=== PATIENT | male | born 1950 | race Caucasian/White ===

== ENCOUNTER → 2018-11-30 | Outpatient (CLI) | payer MEDICARE, OTHER ==
[~2018-11-30] MED LIST: ASPIRIN325 PO; GLIPIZIDE5 MG PO; GLUMETZA; JANUMET 50-1,01 EACH PO; LANTUSSOLASTAR; LISINOPRIL20 MG PO; LOMOTIL TABLET1 EACH PER TUBE; MECLIZINE HCL25 M1 PO; ONDANSETRON HCL4 M2; PRILOSEC40 MG PO; PROCHLORPERAZINE5 M2; ZESTORETIC
--- NOTE | ~2018-11-30 | ONC ---
[address] [address] RADIATION ONCOLOGY NOTE Name: CRISTELAINOCENCIAGLENIS Manisha Room: [facility]#: [id number] Admission: 11/30/18 Attend Phys: Augusto Madrid MD Discharge: Date of : 50 Report #: [id number] THIS REPORT FOR: //name// CC: Rayray Madrid DATE OF SERVICE: 11/30/2018 RADIATION ONCOLOGY PROCEDURE NOTE REFERRING PHYSICIANS: Include Dr. Yumiko Head DO, Aretha Glaser MD, Jennifer Vargas MD and Reggie Bo MD. [facility] phone is [phone]. 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 Radiation treatments were completed on 11/05/2013. PROCEDURE: Nasopharyngolaryngoscopy. FINDINGS: The patient underwent nasopharyngolaryngoscopy via the right nostril after administration of a small amount of 2% viscous lidocaine orally and 2% viscous lidocaine to the right nostril via cotton swab. There were no visible lesions in the nasopharynx and no visible lesions in the posterior oropharynx. No visible lesions in the hypopharynx. The true vocal cords are normally mobile bilaterally without any visible lesions. There is no evidence of head and neck cancer. Thank you for allowing me to participate in the care of this patient. By: [id number] charlie Tijerina
--- NOTE | ~2018-11-30 | ONC ---
[address] [address] RADIATION ONCOLOGY NOTE Name: GLENIS VARGAS Manisha Room: [facility]#: [id number] Admission: 11/30/18 Attend Phys: Augusto Madrid MD Discharge: Date of : 50 Report #: [id number] THIS REPORT FOR: //name// CC: Rayray Madrid DATE OF SERVICE: 11/30/2018 RADIATION ONCOLOGY FOLLOWUP NOTE REFERRING PHYSICIANS: Include Dr. Head as well as Dr. Aretha Glaser; Jennifer Vargas MD and Reggie Bo MD. [facility] phone is [phone]. 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 The patient's radiation treatments were completed on 11/05/2013. INTERVAL NOTE: The patient indicated that in [place], he developed what looks like a pharyngeal infection and he had to have a gastric tube put in because it affected his swallowing abilities. He has since recuperated and felt he was swallowing well. He says he has not used his gastric tube in the last 2 weeks and is getting VitalStim treatments. He says he is able to eat barbecue ribs and green beans without any issues. He applies fluoride to his teeth with a toothbrush. MEDICATIONS: Include metformin, Lipitor, glipizide, aspirin, lisinopril. SOCIAL HISTORY: The patient is retired. He is . Cigarettes, he does not smoke cigarettes. REVIEW OF SYSTEMS: RESPIRATORY: The patient's breathing was baseline. He was not short of breath. MUSCULOSKELETAL: He has good range of motion of his upper extremities. PHYSICAL EXAMINATION: VITAL SIGNS: The patient weighed 220.4 pounds on 11/30/2018, 226 pounds on 07/04/2018; blood pressure is 117/77, pulse 76; oxygen saturation 96%, respirations 20. LYMPH NODES: He had no palpable cervical or supraclavicular lymphadenopathy. HEAD, EYES, EARS, NOSE AND THROAT: Mouth had no suspicious visible lesions or suspicious palpable lesions. On nasopharyngolaryngoscopy, after administration of a small amount of 2% viscous lidocaine orally and 2% viscous lidocaine to the right nostril, using a cotton swab, there were no visible lesions in the nasopharynx. There were no visible [place] [address] RADIATION ONCOLOGY NOTE Name: GLENIS VARGAS Room: [facility]#: [id number] Admission: 11/30/18 Attend Phys: Augusto Madrid MD Discharge: Date of : 50 Report #: [id number] cords are normally mobile bilaterally without any visible lesions. HEART: Had a regular rate and rhythm without murmur. LUNGS: Clear to auscultation. LABORATORY DATA: From [facility] on 10/30/2018 revealed sodium of 136, potassium 4.6, BUN of 28, creatinine 1.93. White blood count was 21.2, hemoglobin 14.3. ASSESSMENT AND PLAN: 1. History of head and neck cancer. There is no evidence of head and neck cancer at this time. The patient was given a requisition for basic metabolic panel and TSH level. In 01/2019, he was asked to schedule a followup appointment to see me afterwards. 2. Nutrition. The patient has not been using his gastric tube in the last couple of weeks, he has been able to keep his weight stable according to the patient and so he will be sent to Interventional Radiology to remove the gastric tube and requisition was written for basic metabolic panel and TSH level in about 4-6 weeks and the patient was asked to schedule a followup appointment to see me afterwards. 3. Dental care. The patient was given a prescription for PreviDent to use for dental care. 4. Hypertension. The patient takes lisinopril, hydrochlorothiazide and that is managed by his referring physicians. 5. Diabetes. The patient takes metformin and that is managed by his referring physicians. Thank you for allowing me to participate in the care of this patient. By: [id number] Madrid MD /radha
--- NOTE | 2018-11-30 15:15 | NUR ---
patient here for removal of gastric tube. balloon deflated and removed without any difficulty. patient tolerated well.
== END | disposition home or self-care (01) ==
LOC: M.INT 01:56 → M.RTH 01:56
DX: Z08 Encounter for follow-up examination after completed treatment for malignant neoplasm (principal); Z85.818 Personal history of malignant neoplasm of other sites of lip, oral cavity, and pharynx; I10 Essential (primary) hypertension; E11.9 Type 2 diabetes mellitus without complications; Z79.82 Long term (current) use of aspirin; Z79.899 Other long term (current) drug therapy; Z98.890 Other specified postprocedural states; Z79.4 Long term (current) use of insulin

== ENCOUNTER 2018-12-10 08:29 | Emergency (ER) | payer MEDICARE, OTHER ==
[~2018-12-10] VITALS: Ht 175.3 cm; Wt 99.8 kg
[2018-12-10] MEDS ORDERED: GLUCOTROL5 MG PO (08:37)
[2018-12-10] MEDS ORDERED: NORVASC5 M1 PO (08:37)
[2018-12-10] MEDS ORDERED: METFORMIN HCL500 MG PO (08:38)
[2018-12-10 08:52] LABS: ABSOLUTE EOSINOPHILS 0.2 thou/uL (0.0-0.7); ABSOLUTE LYMPHOCYTES 1.4 thou/uL (0.8-5.3); ABSOLUTE MONOCYTES 0.4 thou/uL (0.0-1.2); ABSOLUTE NEUTROPHILS 5.4 thou/uL (1.6-8.1); BASOPHILS 0.3 %; EOSINOPHILS 2.9 %; HEMATOCRIT 44.7 % (42.0-52.0); HEMOGLOBIN 14.8 gm/dL (14.0-18.0); LYMPHOCYTES 18.9 %; MCV 84.7 fL (80.0-100.0); MPV 6.8 fl. (7.2-11.1); NUCLEATED RBCS 0 /100WBC; PLATELET COUNT* 295 thou/uL (150-400); POLYS 71.9 %; RBC 5.27 mil/uL (4.50-6.00); RDW-CV 16.1 % (10.5-14.5); WBC 7.5 thou/uL (4.0-11.0)
[2018-12-10 09:00] LABS: CREATININE 1.3 mg/dL (0.6-1.3); POTASSIUM 4.6 mmol/L (3.5-5.1)
[2018-12-10 09:11] LABS: ALBUMIN 3.6 g/dL (3.4-5.0); TOTAL BILIRUBIN 0.3 mg/dL (<0.1-1.0); TOTAL PROTEIN 7.4 g/dL (6.4-8.2)
[2018-12-10 09:17] LABS: APTT 25.8 Seconds (25.0-31.3); PROTIME 9.9 Seconds (9.20-11.50)
[2018-12-10 09:48] LABS: URINE BILIRUBIN NEGATIVE (Negative); URINE BLOOD NEGATIVE (Negative); URINE CLARITY CLEAR; URINE COLOR YELLOW; URINE GLUCOSE-RANDOM NEGATIVE (Negative); URINE KETONES NEGATIVE (Negative); URINE LEUKOCYTES-REFLEX NEGATIVE (Negative); URINE NITRITE-REFLEX NEGATIVE (Negative); URINE PROTEIN NEGATIVE (Negative); URINE SPECIFIC GRAVITY 1.025 (1.005-1.030); URINE UROBILINOGEN 0.2 E.U./dl (0.2-1.0)
[2018-12-10 13:44] VITALS: BP 170/81
--- NOTE | 2018-12-11 16:10 | EKG ---
[place] [address] ELECTROCARDIOGRAM REPORT Name: ARTEMTANNERWILLIAMGLENIS L Room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
== END 2018-12-10 13:44 | disposition home or self-care (01) ==
LOC: M.ERS 08:29
PROVIDERS: Family Medicine
DX: R42 Dizziness and giddiness (principal); I10 Essential (primary) hypertension; E11.9 Type 2 diabetes mellitus without complications; E78.00 Pure hypercholesterolemia, unspecified; Z85.819 Personal history of malignant neoplasm of unspecified site of lip, oral cavity, and pharynx; Z79.4 Long term (current) use of insulin